=== PATIENT | female | born 1995 | race American Indian/Alaskan Native ===

== ENCOUNTER 2017-08-13 19:27 | Emergency (ER) | payer SELFPAY ==
[2017-08-13 20:45] VITALS: BP 104/65
[2017-08-13 21:07] LABS: Hematocrit 42.4 % (30.3-42.9); Hemoglobin 13.9 gm/dl (10.1-14.3); Mean Corpuscular HGB Conc 33 % (30-34); Mean Corpuscular Hemoglobin 29 pg (28-32); Mean Corpuscular Volume 88 fl (79-97); Platelet Count 216 K/mm3 (140-440); Red Blood Count 4.84 M/mm3 (3.65-5.03)
[2017-08-13 21:25] LABS: Anion Gap 21 mmol/L; BUN/Creatinine Ratio 14.16; Blood Urea Nitrogen 17 mg/dL (7-17); Calcium 8.9 mg/dL (8.4-10.2); Carbon Dioxide 25 mmol/L (22-30); Chloride 92.6 mmol/L (98-107); Glucose 118 mg/dL (65-100); Potassium 3.6 mmol/L (3.6-5.0); Sodium 135 mmol/L (137-145)
[2017-08-13 21:43] LABS: Urine Drugs of Abuse Note Disclamer
== END 2017-08-13 22:45 | disposition left against medical advice (07) ==
LOC: ED 19:27
DX: T51.91XA Toxic effect of unspecified alcohol, accidental (unintentional), initial encounter (principal); Z79.899 Other long term (current) drug therapy; Z53.21 Procedure and treatment not carried out due to patient leaving prior to being seen by health care provider; Y93.89 Activity, other specified; Y99.8 Other external cause status; Y92.89 Other specified places as the place of occurrence of the external cause
CPT/HCPCS: 36415; 80048; 80307; 81025; 85027; G0480; 80320